=== PATIENT | female | born 1995 | race Caucasian/White ===

== ENCOUNTER 2017-09-09 10:35 | Day surgery (SDC) | payer OTHER, SELFPAY ==
[2017-09-07 17:08] LABS: Hematocrit 36.9 % (37-47); Hemoglobin 12.7 g/dl (12.0-15.0); Mean Corp Hgb Conc 34.4 g/gl (32-36); Mean Corpuscular Hgb 29.8 pg (27.0-32.0); Mean Corpuscular Volume 86.6 fL (81-99); Mean Platelet Vol. 8.8 fl (6.2-12.0); Platelet Count 293 K/mm3 (150-450); RBC Distribution Width CV 12.5 % (11.6-14.6); RBC Distribution Width SD 39.6 fl (35.1-43.9); Red Blood Count 4.26 M/mm3 (4.2-5.4); Scan Indicated on CBC? Y/N NO; White Blood Count 8.2 K/mm3 (4.4-11.0)
[2017-09-07 17:24] LABS: International Normalized Ratio 1.1; Prothrombin Time (Protime)PT. 13.8 SECONDS (11.7-14.9)
[2017-09-07 17:25] LABS: Partial Thromboplast Time 33.3 Seconds (24.1-36.2)
[2017-09-09] VITALS (9 sets, daily range): BP systolic 120–141; BP diastolic 72–84; PULSE 75–110; RESP 14–18; TEMP 36.8–37.1; O2SAT 99–100; BMI 18.5
--- NOTE | 2017-09-09 | OV_PTH ---
PATIENT: MELLY CLIFTON LOC: [facility] [place] U#:[id number] AGE/SX: 22/F ROOM: RE09/09/[address]: Dr. Antolin Jimenez MD : 1995 BED: DIS: 09/09/2017 SPEC #: [id number] RECD: 09/09/17 14:47 STATUS: LETHA DOLLY #: [id number] JEFFREY: 09/09/17 00:[address]: Antolin Jimenez DEPT: SURGICAL PATHOLOGY RECD BY: Gordo Carter ENTERED: 09/09/17 14:48 SP TYPE: OVARY OTHR DR: Dr. 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 Fallopian tube - no pathologic diagnosis. DANYELLE:neville 09/10/17 MICROSCOPIC DESCRIPTION Slides are reviewed. GROSS DESCRIPTION Received in fixative is one container labeled with the patient's name and designated portion of right ovary and right ovarian cyst wall and right fallopian tube. The specimen consists of previously opened cystic ovarian tissue, attached fallopian tube and a detached piece of tissue consistent with detached ovarian cyst wall. The fallopian tube measures 7 cm in length and 0.5 cm in diameter. The fimbrial end is identified. Sections do not reveal any mass lesion. The detached piece of tissue measures 2.5 x 2 x 0.4 cm. Focal tubo-ovarian adhesions are noted. The previously opened cystic ovary measures 4 x 3.5 x 1 cm. No solid area is identified. Linoleum Layer Helper sections are submitted in four cassettes as follows: 1 ? fallopian tube, 2 ? detached piece of ovarian tissue, 3 & 4 ? cystic ovary with ovarian tissue. / DANYELLE:ne[place] 09/09/17 TC:1 CPT: 01203
--- NOTE | 2017-09-09 07:46 | PCM.OPRPT ---
Problem List (1) Ovarian cyst Status: Acute Qualifiers: Laterality: right Qualified Code(s): N83.201 - Unspecified ovarian cyst, right side Report of Operation Date of Procedure: 09/09/17 Pre-Operative Diagnosis: Ovarian cyst Post-Operative Diagnosis: Same Surgery/Procedure Performed:: Laparoscopic Right Ovarian Cystectomy Description of Surgical Findings:: Large right cyst involving right fallopian tube. Cyst was fluid filled. Normal left ovary fallopian tube and uterus. top taper machine: Ros Trevino Type of Anesthesia:: General Anesthesiologist: Alonso Linda Special Medications: none Specimen's removed: right fallopian tube and portion of right ovary with cyst Drains: none Estimated Blood Loss (mL): minimal Description of Procedure: Ashley was taken to the OR with IV running. She was given two grams of Cefotetan IV for surgical prophylaxis. General anesthesia was introduced without complication. She was then prepped and draped in the dorsal lithotomy position. SCDs were in place from the preoperative area through surgery and into recovery. A red rubber catheter was used to drain the bladder. A uterine manipulator was then placed. Attention was then directed towards the abdomen. A 5 mm vertical incision was made in the lower base of the umbilicus. The underlying subcutaneous tissue was dissected down to the level of the fascia using blunt dissection with a Rani clamp. The abdominal wall was then elevated and a Veress needle placed through the umbilical defect into the abdominal cavity. The abdomen was then inflated to 12 Torr with CO2 gas. The Veress needle was removed and replaced with a 5mm trocar and sleeve. The trocar was removed and replaced with the laparoscope. Findings as above. Two 5 mm lateral side ports were placed under direct visualization of the laparoscope. Both were placed approximately 3 cm below the level of the umbilicus lateral to the epigastric vessels. A thorough survey of the abdomen and pelvis was performed. The right adnexal cyst was then ruptured with the bovie cautery and the cyst fluid was evacuated using the suction air technician. An attempt to preserve the right fallopian tube was made but due to the strong attachment of the tube to the cyst it was found to no0t be feasible to remove the cyst from the tube without injuring it. The right fallopian tube was then cut at the cornua and the mesosalpinx serially cauterized and cut until the entire tube and cyst wall were removed. The specimen was removed through the umbilicus using and endocatch. The pedicle sites were inspected for hemostasis. The lateral port sites were removed. Gas was evacuated and the umbilical port site was removed. The fascial defect at the umbilicus was closed with 0-Vicryl suture. The skin incisions were closed with 4-0 MOnocryl. Sponge, lap, and needle counts were correct. She was reversed from anesthesia and taken tot he recovery room in stable condition. - Complications none - Admit VTE Documentation VTE Present on Admission: No VTE Mechan Device Prophylaxis: SCD's VTE Pharm Prophylaxis ordered?: No
--- NOTE | 2017-09-09 07:54 | OP.PCM_ITS ---
Problem List (1) Ovarian cyst Status: Acute Qualifiers: Laterality: right Qualified Code(s): N83.201 - Unspecified ovarian cyst, right side Report of Operation Date of Procedure: 09/09/17 Pre-Operative Diagnosis: Ovarian cyst Post-Operative Diagnosis: Same Surgery/Procedure Performed:: Laparoscopic Right Ovarian Cystectomy Description of Surgical Findings:: Large right cyst involving right fallopian tube. Cyst was fluid filled. Normal left ovary fallopian tube and uterus. construction project engineer: Ros Trevino Type of Anesthesia:: General Anesthesiologist: Alonso Linda Special Medications: none Specimen's removed: right fallopian tube and portion of right ovary with cyst Drains: none Estimated Blood Loss (mL): minimal Description of Procedure: Ashley was taken to the OR with IV running. She was given two grams of Cefotetan IV for surgical prophylaxis. General anesthesia was introduced without complication. She was then prepped and draped in the dorsal lithotomy position. SCDs were in place from the preoperative area through surgery and into recovery. A red rubber catheter was used to drain the bladder. A uterine manipulator was then placed. Attention was then directed towards the abdomen. A 5 mm vertical incision was made in the lower base of the umbilicus. The underlying subcutaneous tissue was dissected down to the level of the fascia using blunt dissection with a Rani clamp. The abdominal wall was then elevated and a Veress needle placed through the umbilical defect into the abdominal cavity. The abdomen was then inflated to 12 Torr with CO2 gas. The Veress needle was removed and replaced with a 5mm trocar and sleeve. The trocar was removed and replaced with the laparoscope. Findings as above. Two 5 mm lateral side ports were placed under direct visualization of the laparoscope. Both were placed approximately 3 cm below the level of the umbilicus lateral to the epigastric vessels. A thorough survey of the abdomen and pelvis was performed. The right adnexal cyst was then ruptured with the bovie cautery and the cyst fluid was evacuated using the suction director of enterprise applications. An attempt to preserve the right fallopian tube was made but due to the strong attachment of the tube to the cyst it was found to no0t be feasible to remove the cyst from the tube without injuring it. The right fallopian tube was then cut at the cornua and the mesosalpinx serially cauterized and cut until the entire tube and cyst wall were removed. The specimen was removed through the umbilicus using and endocatch. The pedicle sites were inspected for hemostasis. The lateral port sites were removed. Gas was evacuated and the umbilical port site was removed. The fascial defect at the umbilicus was closed with 0-Vicryl suture. The skin incisions were closed with 4-0 MOnocryl. Sponge, lap, and needle counts were correct. She was reversed from anesthesia and taken tot he recovery room in stable condition. - Complications none - Admit VTE Documentation VTE Present on Admission: No VTE Mechan Device Prophylaxis: SCD's VTE Pharm Prophylaxis ordered?: No
--- NOTE | 2017-09-09 12:18 | PCM.DC ---
You will use the following diet at home:: No restrictions Your food should be the consistency of: Regular Discharge Activity: Return to Normal Activity, No Restrictions, May Not Drive, May not drive while taking narcotic pain medications., May Shower Return to work on:: 09/13/17 May shower in (days): 0 May resume sexual activity in: 3 weeks Call your doctor if your incision/area has: Sudden Increased Bleeding, Increased Pain/ Swelling, Increased Redness, Foul Smelling Discharge, Swelling at the incision site Call your doctor if you observe: Fever of 101 or Higher, Inability to urinate, Inability to have a bowel movement, Using more than one pad per hour, Shortness of breath, Chest pain, Calf discomfort, Uncontrolled pain Cleanse incision/area with: Soap & Water Allergies/Adverse Reactions: Allergies No Known Allergies Allergy (Verified 09/08/17 13:33) Medications to take at Discharge Ibuprofen Liquid [Motrin Liquid] 600 mg PO Q6H PRN PRN 7 Days #300 ml 09/09/17 Oxycodone Soln [Oxyfast] 5 mg PO Q4H PRN #14 po.syringe 09/09/17 The following prescriptions were given: Ibuprofen Liquid [Motrin Liquid] 600 mg PO Q6H PRN PRN 7 Days #300 ml PRN Reason: pain or cramping Oxycodone Soln [Oxyfast] 5 mg PO Q4H PRN #14 po.syringe PRN Reason: Pain Primary Care Physician: Markel Ruiz MD [Primary Care Provider] - Please Follow Up With: Antolin Jimenez MD When: 1-2 weeks Proposed Discharge Date: 09/09/17
[2017-09-09] MEDS: Bupivacaine 0.25% 30 ML Vial (13:14)
[2017-09-09] MEDS: Ketorolac 30 MG/ML Syringe IV (14:29)
[2017-09-09] MEDS: oxyCODONE 5 MG Tablet PO (16:27)
== END 2017-09-09 18:36 | disposition home or self-care (01) ==
LOC: SDC 10:36 → AC 10:37
PROVIDERS: Family Provider Family Medicine; PCP Family Medicine; Visit Provider Obstetrics & Gynecology
PROC: (CPT 58661; principal; 2017-09-09 11:45)
DX: D27.0 Benign neoplasm of right ovary (principal)
CPT/HCPCS: 58661; 58662; 36415; 85027; 85610; 85730; 86850; 86900; 88305; J7120; J2405